=== PATIENT | male | born 1945 | race Caucasian/White ===

== ENCOUNTER 2023-05-06 08:30 | Day surgery (SDC) | payer MEDICARE ==
[~2023-05-06 08:30] MED LIST: Midazolam 1 MG/ML 2 ML SDV ONE; Propofol 200 MG/20 ML SDV ONE; fentaNYL 100 MCG/2 ML SDV ONE
[2023-05-06] MEDS ORDERED: Lactated Ringers 1,000 ML IV SCH (09:15)
== END 2023-05-06 11:14 | disposition home or self-care (01) ==
LOC: JP.SDS 08:30
PROVIDERS: ATTEND Student in an Organized Health Care Education/Training Program
DX: K21.00 Gastro-esophageal reflux disease with esophagitis, without bleeding (principal); K31.7 Polyp of stomach and duodenum; K44.9 Diaphragmatic hernia without obstruction or gangrene; G47.33 Obstructive sleep apnea (adult) (pediatric); I10 Essential (primary) hypertension; M10.9 Gout, unspecified; K75.9 Inflammatory liver disease, unspecified; Z88.2 Allergy status to sulfonamides; Z88.5 Allergy status to narcotic agent
CPT/HCPCS: 43239; 88305; J2704; J3010; J7120; J2250

== ENCOUNTER 2024-04-16 06:33 | Day surgery (SDC) | payer MEDICARE ==
[2024-04-16] MEDS ORDERED: Sodium Chloride 0.9% 1,000 ML IV SCH (07:00)
== END 2024-04-16 07:54 | disposition home or self-care (01) ==
LOC: JP.SDS 06:33
PROVIDERS: ATTEND Surgery
DX: Z12.11 Encounter for screening for malignant neoplasm of colon (principal); Z86.010 Personal history of colon polyps; Z53.8 Procedure and treatment not carried out for other reasons

== ENCOUNTER 2024-04-17 06:27 | Day surgery (SDC) | payer MEDICARE ==
[2024-04-17] MEDS: Lactated Ringers 1,000 ML IV SCH (07:23)
[2024-04-17] MEDS ORDERED: fentaNYL 100 MCG/2 ML SDV ONE (07:28)
[2024-04-17] MEDS ORDERED: Propofol 200 MG/20 ML SDV ONE (07:28)
== END 2024-04-17 09:18 | disposition home or self-care (01) ==
LOC: JP.SDS 06:27
PROVIDERS: ATTEND Surgery
DX: Z12.11 Encounter for screening for malignant neoplasm of colon (principal); K63.5 Polyp of colon; K57.30 Diverticulosis of large intestine without perforation or abscess without bleeding; G47.33 Obstructive sleep apnea (adult) (pediatric); I10 Essential (primary) hypertension; F32.A Depression, unspecified; E66.9 Obesity, unspecified; Z88.2 Allergy status to sulfonamides; Z86.010 Personal history of colon polyps
CPT/HCPCS: 00811; 45385; 88305; J2704; J3010; J7120